=== PATIENT | female | born 1945 | race Native Hawaiian/Other Pacific Islander ===

== ENCOUNTER 2016-08-12 09:53 | Outpatient (CLI) | payer OTHER ==
[2016-08-12 10:15] LABS: PLATELET COUNT 227 K/uL (152-353)
[2016-08-12 10:28] LABS: POTASSIUM 3.9 mmol/L (3.6-5.2)
== END 2016-08-12 19:21 | disposition home or self-care (01) ==
LOC: LABW 09:53
PROVIDERS: Nurse Practitioner
DX: I10 Essential (primary) hypertension (principal); N28.89 Other specified disorders of kidney and ureter; E11.9 Type 2 diabetes mellitus without complications; E55.9 Vitamin D deficiency, unspecified; E78.00 Pure hypercholesterolemia, unspecified; E53.8 Deficiency of other specified B group vitamins
CPT/HCPCS: 36415; 80053; 80061; 82043; 82306; 82570; 82607; 83036; 85027

== ENCOUNTER 2016-09-26 09:51 | Outpatient (CLI) | payer OTHER | END 2016-09-26 19:21 | disposition home or self-care (01) | LOC: MAMMO 09:51 | DX: Z12.31 Encounter for screening mammogram for malignant neoplasm of breast (principal) | CPT/HCPCS: G0202-TC ==

== ENCOUNTER 2017-06-08 20:42 | Observation (INO) | payer OTHER ==
[~2017-06-08] VITALS: Ht 147.3 cm; Wt 86.8 kg
[2017-06-08] VITALS (9 sets, daily range): BP systolic 144–202; BP diastolic 72–100; TEMP 99.8
[2017-06-08 21:35] LABS: PLATELET COUNT 248 K/uL (152-353)
[2017-06-08 21:50] LABS: POTASSIUM 3.5 mmol/L (3.6-5.2)
[2017-06-08 22:17] LABS: PARTIAL THROMBOPLASTIN TIME 22.3 SECONDS (24.5-33.6)
[2017-06-09 01:18] VITALS: BP 198/98; TEMP 98.8; Ht 147.3 cm; Wt 86.8 kg
[2017-06-09 04:17] VITALS: BP 182/82; TEMP 98.8
[2017-06-09 08:00] VITALS: BP 143/95; TEMP 98.3
[2017-06-09 12:00] VITALS: BP 156/74; TEMP 98.1
[2017-06-09 16:00] VITALS: BP 180/81; TEMP 98
--- NOTE | 2017-06-09 17:00 | NUR ---
PT GIVEN D/C INSTRUCTIONS. VERBALIZED UNDERSTANDING. IV D/C'ED WITH CATH TIP INTACT. RX GIVEN. ASSISTED OUT TO POV VIA W/C ACCOMPANIED BY . NAD NOTED. AAOX4.
== END 2017-06-09 17:00 | disposition home or self-care (01) ==
LOC: ED 20:42 → MED/SURG 23:49
PROVIDERS: Specialist; ADMIT Emergency Medicine
DX: R07.89 Other chest pain (principal); R11.2 Nausea with vomiting, unspecified; I10 Essential (primary) hypertension; E11.9 Type 2 diabetes mellitus without complications; R06.02 Shortness of breath
CPT/HCPCS: 36415; 80053; 82550; 82948; 83880; 84484; 85027; 85610; 85730; 93005; 96372; 99220; 99283; G0378; J1650; Q9963